=== PATIENT | female | born 1935 | race American Indian/Alaskan Native ===

== ENCOUNTER 2016-12-10 06:04 | Day surgery (SDC) | payer OTHER ==
[2016-12-10] MEDS ORDERED: DIPRIVAN 10 MG/ML IV ONE ×2 (07:03→07:04)
[2016-12-10] MEDS ORDERED: WATER FOR IRRIG STERILE IR ONE (07:05)
[2016-12-10] MEDS ORDERED: GI SPOT IJ ONE ×2 (07:41→10:22)
[2016-12-10] MEDS ORDERED: NACL 0.9% 1000 ML 1,000 ML IV SCH (08:00)
--- NOTE | 2016-12-10 08:10 | Short Stay Summary ---
Short Stay Documentation - Allergies and Medications Current Medications: Allergies Penicillins Allergy (Mild, Verified 01/16/15 09:38) Rash PT GIVEN ANCEF. STARTED TO ITCH AND MILD RASH WITH ONE WHELP ON FACE cefazolin sodium [From Ancef] Adverse Reaction (Verified 08/06/15 14:52) Itching Home Medications Medication Instructions Recorded Confirmed Last Taken Type Aspirin EC [Aspirin Enteric Coated 81 mg PO DAILY 07/30/14 12/10/16 12/05/16 History TAB] Simvastatin 20 mg PO QHS 07/30/14 12/10/16 12/09/16 History Cinacalcet HCl [Sensipar] 90 mg PO QPM 01/16/15 12/10/16 08/13/15 History Sevelamer Carbonate [Renvela] 800 mg PO TIDWM 01/16/15 12/10/16 12/09/16 History Pioglitazone [Actos] 7.5 mg PO QDAY 08/06/15 12/10/16 12/09/16 History HYDROcodone/APAP 10-325 [Udell 1 each PO Q6HR PRN #90 tablet 08/14/15 12/10/16 Unknown Rx 10-325 mg TAB] Omeprazole 40 mg PO DAILY PRN 08/14/15 12/10/16 12/09/16 History glipiZIDE [Glipizide] 10 mg PO DAILY PRN 08/14/15 12/10/16 12/09/16 History Active Medications Sodium Chloride (Nacl 0.9% 1000 Ml) 1,000 mls @ 50 mls/hr IV DIRECT VIOLETA - Brief post op/procedure progress note Date of procedure: 12/10/16 Pre-op diagnosis: 1. Colon cancer screening 2. LGI bleeding Post-op diagnosis: same (1. Ulcerated friable mass in hepatic flexure 2. Internal hemorrhoids) Procedure: Colonoscopt with biopsy and with tattooing Anesthesia: MAC Findings: as above Surgeon: ADITYA STARKS Estimated blood loss: minimal Pathology: list (1.MASS IN HEPATIC FLEXURE) Specimen disposition: to lab Condition: stable - Disposition Condition at discharge: Stable Disposition: DISCHARGED TO HOME OR SELFCARE Short Stay Discharge Plan Activity: no restrictions Weight Bearing Status: Full Weight Bearing Diet: regular, renal Follow up with: SCOTT MCCONNELL MD, PHD [Primary Care Provider] - 7 Days
[2016-12-10 08:54] VITALS: BP 124/48
--- NOTE | 2016-12-10 10:12 | Anesthesia Day of Surgery ---
Anesthesia Day of Surgery - Day of Surgery Patient Examined: Yes Patient H&P Reviewed: Yes Patient is NPO: Yes
--- NOTE | 2016-12-10 10:13 | Anesthesia Consultation ---
Anesthesia Consult and Med Hx Date of service: 12/10/16 - Airway Anesthetic Teeth Evaluation: Partials (upper and lower) ROM Head & Neck: Adequate Mental/Hyoid Distance: Adequate Mallampati Class: Class II Intubation Access Assessment: Probably Good - Pulmonary Exam CTA: Yes - Cardiac Exam Cardiac Exam: RRR - Pre-Operative Health Status ASA Pre-Surgery Classification: ASA3 Proposed Anesthetic Plan: MAC - Pulmonary Hx Smoking: Yes Hx Asthma: No Hx Pneumonia: Yes (pneumonia shot 2013) Hx Sleep Apnea: No - Cardiovascular System Hx Hypertension: Yes (Takes occassional Carvedilol when BP is high) Hx Coronary Artery Disease: No - Central Nervous System Hx Seizures: No CVA: No Hx Psychiatric Problems: No - Gastrointestinal Hx Gastroesophageal Reflux Disease: Yes (Controlled w/ meds) - Endocrine Hx Renal Disease: Yes Hx End Stage Renal Disease: Yes (last dialyzed on Wednesday) Hx Non-Insulin Dependent Diabetes: Yes Hx Thyroid Disease: No - Hematic Hx Anemia: Yes Hx Sickle Cell Disease: No - Other Systems Hx Alcohol Use: Yes (OCCAS BEER) Hx Cancer: No Hx Obesity: No - Additional Comments Anesthesia Medical History Comments: NAC
--- NOTE | 2016-12-10 10:35 | Post Anesthesia Evaluation ---
- Post Anesthesia Evaluation Patient Participated: Yes Airway Patent: Yes Stable Respiratory Function: Yes Nausea/Vomiting: No Temp > 96.8F: Yes Pain Manageable: Yes Adequeate Hydration: Yes Anesthesia Complications: No Block Receding Appropriately: Not Applicable Patient on Ventilator: No
== END 2016-12-10 06:05 | disposition home or self-care (01) ==
LOC: GIO 06:04
PROVIDERS: ATTEND Internal Medicine Gastroenterology
DX: C18.3 Malignant neoplasm of hepatic flexure (principal); K64.8 Other hemorrhoids; K57.30 Diverticulosis of large intestine without perforation or abscess without bleeding; Z87.01 Personal history of pneumonia (recurrent); K21.9 Gastro-esophageal reflux disease without esophagitis; E11.22 Type 2 diabetes mellitus with diabetic chronic kidney disease; N18.6 End stage renal disease; I12.0 Hypertensive chronic kidney disease with stage 5 chronic kidney disease or end stage renal disease; Z99.2 Dependence on renal dialysis
CPT/HCPCS: 45380; 45381; 88305; J2704

== ENCOUNTER 2018-10-11 11:32 | Outpatient (CLI) | payer MEDICARE ==
--- NOTE | 2018-10-11 13:58 | XRay Report ---
X-RAY CHEST WITH RIGHT RIB DETAIL FOUR VIEWS: 10/11/18 11:32:00 CLINICAL: Right rib pain. FINDINGS: Mild osteopenia. No fracture or rib lesion identified.The lungs are normally expanded and clear. No pneumothorax. Normal heart and pulmonary vasculature the lungs are clear. A right [id number] tip is in the SVC. Degenerative changes in the spine. A left upper arm vascular stent and healed fracture of the proximal left humerus. IMPRESSION: Negative with no rib fracture identified.
== END 2018-10-11 11:33 | disposition home or self-care (01) ==
LOC: SPVIMAG 11:32
DX: R07.81 Pleurodynia (principal); I12.0 Hypertensive chronic kidney disease with stage 5 chronic kidney disease or end stage renal disease; E11.22 Type 2 diabetes mellitus with diabetic chronic kidney disease; N18.6 End stage renal disease; E78.00 Pure hypercholesterolemia, unspecified; K21.9 Gastro-esophageal reflux disease without esophagitis